=== PATIENT | male | born 1955 | race Caucasian/White ===

== ENCOUNTER → 2022-11-21 | Outpatient (CLI) | payer MEDICARE ==
--- NOTE | 2022-11-25 07:48 | MR ---
EXAMINATION TYPE: MR knee RT wo con DATE OF EXAM: 11/21/2022 COMPARISON: Outside right knee x-ray November 08, 2022 HISTORY: Rt knee pain and swelling with history of prior surgery. TECHNIQUE: Multiplanar, multisequence images of the knee is performed without IV contrast. FINDINGS: MEDIAL MENISCUS: Irregular signal posterior horn medial meniscus extends to inferior articular surfac e sagittal image 9. LATERAL MENISCUS: Anterior and posterior horns are intact without tear. CRUCIATE LIGAMENTS: The anterior and posterior cruciate ligaments are intact and unremarkable. COLLATERAL LIGAMENTS: The medial collateral ligament and lateral collateral ligament complex are inta ct and unremarkable. EXTENSOR MECHANISM: Visualized quadriceps and patellar tendons are intact. There is bony spur from th e anterior superior patella distal quadriceps tendon insertion. EFFUSION: Moderate size suprapatellar joint effusion. POPLITEAL CYST: No popliteal/zamudio cyst. TRICOMPARTMENT SPACES: Fairly moderate tricompartment joint space loss with mild spurring. CARTILAGE: Cartilaginous loss medial tibial femoral compartment. BONE MARROW SIGNAL: No focal abnormal marrow signal is appreciated. OTHER: Some ill-defined fluid in the deep posterior aspect of the knee running inferiorly along the c ourse of the proximal posterior tibial muscle is partially imaged. IMPRESSION: 1. There is full-thickness tear posterior horn of medial meniscus. 2. There are fairly moderate tricompartment degenerative changes as detailed above most prominent inv olving the patellofemoral and medial tibiofemoral compartments. 3. Moderate-sized suprapatellar joint effusion. 4. Possible sprain injury to the muscle along the posterior proximal tibia is partially imaged.
== END | disposition home or self-care (01) ==
LOC: RADMRIMAIN 10:27
PROVIDERS: ATTEND Orthopaedic Surgery
DX: S83.241A Other tear of medial meniscus, current injury, right knee, initial encounter (principal); M17.11 Unilateral primary osteoarthritis, right knee; M25.461 Effusion, right knee

== ENCOUNTER 2023-01-04 05:36 | Day surgery (SDC) | payer MEDICARE ==
[2022-12-26 18:19] VITALS: BMI 25.8
--- NOTE | 2023-01-02 12:43 | HP ---
HISTORY AND PHYSICAL DATE OF SURGERY: 01/03/2023. HISTORY OF PRESENT ILLNESS: Ramy Cabrera is a 67-year-old gentleman, seen with progressive right knee pain. We discussed options for treatment. He elected to proceed with right knee arthroscopy. Consent regarding procedure was obtained. PAST MEDICAL HISTORY: Hypertension, insulin-dependent diabetes, and hyperlipidemia. PAST SURGICAL HISTORY: Shoulder arthroscopy. DAILY MEDICATIONS: 1. Actos. 2. Farxiga. 3. Metformin. 4. Norvasc. 5. NovoLog. 6. Pravastatin. 7. Vitamins. ALLERGIES: None. SOCIAL HISTORY: Denies tobacco use. PHYSICAL EVALUATION OF THE RIGHT KNEE: Range of motion is -2 to 125 degrees. Tenderness along the medial joint line with positive medial Kylah's. Ligaments are stable. Hip rotation is without pain. Distal neurovascular exam is intact. IMAGING STUDIES: Right knee radiographs revealed mild osteoarthritic changes. MRI right knee revealed medial meniscal tear, moderate arthritis, and effusion. IMPRESSION: 1. Internal derangement of right knee with medial meniscal tear. 2. Hypertension. 3. Insulin-dependent diabetes. 4. Hyperlipidemia. PLAN: Right knee arthroscopy with partial medial meniscectomy and debridement. MMODL / IJN: [id number] /
--- NOTE | 2023-01-04 00:46 | HP ---
HISTORY AND PHYSICAL DATE OF SURGERY: 01/04/2023. HISTORY OF PRESENT ILLNESS: Ramy Cabrera is a 67-year-old gentleman, seen with progressive right knee pain. After treatment options were discussed with him, he elected to proceed with right knee arthroscopy. Consent regarding the procedure was obtained. Medical clearance was provided. PAST MEDICAL HISTORY: Hypertension, hyperlipidemia, and insulin-dependent diabetes. PAST SURGICAL HISTORY: Shoulder arthroscopy. DAILY MEDICATIONS: Include: 1. Actos. 2. Aspirin. 3. Enalapril. 4. Glucagon. 5. Ibuprofen. 6. Metformin. 7. Neurontin. 8. Norvasc. 9. NovoLog insulin. 10.Pravastatin. ALLERGIES: None. SOCIAL HISTORY: Denies tobacco use. PHYSICAL EVALUATION OF THE RIGHT KNEE: Range of motion is -2 to 125 degrees. Tenderness along the medial joint line. Positive medial Kylah's. Ligaments are stable. Hip rotation is without pain. Distal neurovascular exam is intact. IMAGING STUDIES: Right knee radiographs revealed mild medial compartment osteoarthritis. MRI right knee revealed medial meniscal tear, moderate arthritis, and effusion. IMPRESSION: 1. Internal derangement of right knee with medial meniscal tear. 2. Hypertension. 3. Hyperlipidemia. 4. Insulin-dependent diabetes. PLAN: Right knee arthroscopy with partial medial meniscectomy and debridement. MMODL / IJN: [id number] /
[~2023-01-04 05:36] MED LIST: HYDROmorphone 0.5 MG/0.5 ML SYRINGE IVP PRN; LACTATED RINGERS 1,000 ML IV SCH; LIDOCAINE 1% (10MG/ML) FOR IV START INTRADERMA PRN; ONDANSETRON 4 MG/2 ML VIAL IVP ONE; droPERidol 5 MG/2 ML VIAL IVP ONE
[2023-01-04] MEDS ORDERED: LACTATED RINGERS 1,000 ML IV ONE (06:16)
[2023-01-04] MEDS ORDERED: ONDANSETRON 4 MG/2 ML VIAL ONE (06:18)
[2023-01-04 06:26] LABS: Glucose,Whole Blood 183 mg/dL (70-110)
[2023-01-04] MEDS ORDERED: PROPOFOL 10 MG/ML 20 ML VIAL IV ONE (07:19)
[2023-01-04] MEDS ORDERED: LIDOCAINE 1% INJ 10MG/ML (20 ML MDV) ONE (07:19)
[2023-01-04] MEDS ORDERED: fentaNYL (PF) 50 MCG/ML 2 ML AMP ONE (07:19)
[2023-01-04] MEDS ORDERED: HYDROmorphone (PF) 1 MG/ML ONE (07:19)
[2023-01-04] MEDS ORDERED: KETOROLAC 30 MG/ML 1 ML VIAL ONE (07:19)
[2023-01-04] MEDS ORDERED: MIDAZOLAM 2 MG/2 ML VIAL ONE (07:19)
[2023-01-04] MEDS ORDERED: BUPIVACAINE (PF) 0.25% 30 ML VIAL SQ ONE (07:45)
--- NOTE | 2023-01-04 08:13 | P.OP ---
Date of Procedure: 01/04/23 Preoperative Diagnosis: Internal derangement right knee Postoperative Diagnosis: 1. Tear medial and lateral meniscus right knee 2. Grade 4 chondromalacia medial femoral condyle 3. Reactive synovitis medial, lateral and suprapatellar compartments right knee Procedure(s) Performed: 1. Arthroscopic partial medial and lateral meniscectomy left knee 2. Arthroscopic microfracture medial femoral condyle right knee 3. Arthroscopic partial synovectomy medial, lateral and suprapatellar compartments right knee Anesthesia: SHARADA, local Surgeon: Reed Brown Estimated Blood Loss (ml): 7 Pathology: none sent Condition: stable Disposition: PACU Indications for Procedure: 67-year-old gentleman seen with progressive right knee pain. After having treatment options discussed, he elected to proceed with arthroscopy. Operative Findings: see description of procedure Description of Procedure: Patient was taken to the operative suite. Patient underwent a general anesthetic by the department of anesthesia. Patient was given preoperative antibiotics. The right lower extremity was placed in a well-padded arthroscopic leg rodriguez. The right leg was prepped and draped in the normal sterile orthopedic fashion. A lateral parapatellar and suprapatellar incision was made. Trochars were inserted. Arthroscopy was initiated. Suprapatellar pouch revealed diffuse thick reactive synovitis. The patellofemoral joint appeared to articulate congruently. There was grade 1 chondromalacia of the patella without significant tears. The scope was guided into the medial gutter. No loose bodies or plica were identified. The scope was then guided into the medial compartment. A medial parapatellar incision was made. Trocar inserted followed by probe. There was a complex tear involving the posterior horn medial meniscus extending into the midbody. There were areas of grade 4 chondromalacia involving both the medial femoral condyle and tibial plateau. There was thick reactive synovitis anteriorly. I performed a partial medial meniscectomy getting down to stable meniscal tissue. I performed a partial synovectomy decompressing the reactive synovitis. I performed a chondroplasty of the medial femoral condyle getting down to stable osteochondral tissue. I introduced a microfracture awl and performed a microfracture to the area of exposed bone medial femoral condyle penetrating the bone with resultant bleeding at the microfracture site. The residual meniscus was probed and was found to be stable. The residual osteochondral surface was stable. There was good decompression of the synovitis. Scope and probe were then guided into the intercondylar notch. Cruciates were identified, probed and found to be stable. The scope and probe were then guided into lateral compartment. There was a radial tear mid body lateral meniscus. There were grade 1/2 chondromalacia changes of the lateral tibial plateau without tears. There was thick reactive synovitis anteriorly. I performed a partial lateral meniscectomy getting down to stable meniscal tissue. I performed a partial synovectomy decompressing the reactive synovitis. The residual meniscus was stable. There was good decompression of the synovitis. The scope was in guided back into the suprapatellar compartment. I introduced a motorized shaver into the suprapatellar compartment. I debrided some piecemeal fragments of meniscus I encountered. I performed a partial synovectomy. Shaver was now removed. There was good decompression of the synovitis. I took one more look around the entire knee, no residual debris. Instruments were now removed from the joint. The joint was infiltrated with .25% Marcaine. Steri-Strips were applied to the portal sites. Sterile dressings were applied. The patient was placed into a WAYNE hose. No tourniquet was utilized. The patient was awakened, transferred to a bed and taken to recovery stable satisfactory condition.
[2023-01-04 08:28] VITALS: TEMP 97
[2023-01-04 09:16] LABS: Glucose,Whole Blood 172 mg/dL (70-110)
[2023-01-04 09:38] VITALS: BP 152/85
[2023-01-04] MEDS ORDERED: HYDROcodone/APAP 7.5-325MG 1 EACH TAB ONE (10:09)
[2023-01-04] MEDS ORDERED: HYDROcodone/APAP 7.5-325MG 1 EACH TAB PO ONE (10:12)
[2023-01-04 10:23] VITALS: PULSE 66; RESP 18
== END 2023-01-04 10:25 | disposition home or self-care (01) ==
LOC: OR 05:36
PROVIDERS: ATTEND Orthopaedic Surgery
DX: S83.281A Other tear of lateral meniscus, current injury, right knee, initial encounter (principal); S83.241A Other tear of medial meniscus, current injury, right knee, initial encounter; M79.7 Fibromyalgia; M22.41 Chondromalacia patellae, right knee; M65.861 Other synovitis and tenosynovitis, right lower leg; I10 Essential (primary) hypertension; E78.5 Hyperlipidemia, unspecified; E11.9 Type 2 diabetes mellitus without complications; Z79.4 Long term (current) use of insulin; Z79.84 Long term (current) use of oral hypoglycemic drugs; Z79.899 Other long term (current) drug therapy; Z79.82 Long term (current) use of aspirin; Z88.2 Allergy status to sulfonamides; X58.XXXA Exposure to other specified factors, initial encounter
CPT/HCPCS: 29880; 29879; J2250; J2405; J0690; J2001; J3010; J1885; J1170; J2704; J0665